=== PATIENT | female | born 1945 | race Caucasian/White ===

== ENCOUNTER 2020-06-06 00:16 | Outpatient (CLI) | payer MEDICARE, SELFPAY ==
[2020-06-06 19:58] LABS: SARS-CoV-2 RNA PCR Negative
== END 2020-06-06 00:17 | disposition home or self-care (01) ==
LOC: ANHCOVIDDT 00:16
PROVIDERS: PCP Family Medicine; Visit Provider Internal Medicine Gastroenterology
DX: Z01.812 Encounter for preprocedural laboratory examination (principal); Z20.828 Contact with and (suspected) exposure to other viral communicable diseases
CPT/HCPCS: 87635; C9803; U0003

== ENCOUNTER 2020-06-08 03:19 | Day surgery (SDC) | payer MEDICARE, SELFPAY ==
[2020-06-01 13:09] VITALS: BMI 22.2
[2020-06-08 06:56] VITALS: BP 148/72; PULSE 91; RESP 18; TEMP 36.4; O2SAT 100; BMI 21.9
[2020-06-08] MEDS: LACTATED RINGERS 1,000 ML 150 ML IV CONT (07:14)
--- NOTE | 2020-06-08 07:22 | WPDANESEPPF ---
Anes - Initial Pre Proc Eval Procedure: Operation Date: 06/08/20 08:00 Proposed Procedures p Colonoscopy - Daniel Stewart MD Date/Time: 06/08/20 07:22 Surgeon: Daniel Stewart MD Pre Op Diagnosis: Pos Cologuard Patient Data Age: 74 Gender: F Height: 5 ft 3 in Weight: 56.1 kg Last Vital Signs Temp 36.4 C 06/08/20 06:56 Pulse 91 06/08/20 06:56 Resp 18 06/08/20 06:56 BP 148/72 H 06/08/20 06:56 Pulse Ox 100 06/08/20 06:56 Allergies Allergy/AdvReac Type Severity Reaction Status Date / Time amoxicillin Allergy Mild hives Verified 06/08/20 06:54 Sulfa (Sulfonamide Allergy Mild SOB Verified 06/08/20 06:54 Antibiotics) tetracycline AdvReac Nausea and Verified 06/08/20 06:54 Vomiting Home Medications Medication Instructions Recorded Confirmed Type multivitamin 1 tablet PO DAILY 08/07/19 06/08/20 History rosuvastatin 5 mg tablet 5 mg PO DAILY #90 tablet 04/18/20 06/08/20 Rx amlodipine [Norvasc] 2.5 mg PO BID 06/01/20 06/08/20 History Patient hx anesthesia problems: other (aspiration x2) Family hx anesthesia problems: none PMFSH Past Medical History Medical History BP (high blood pressure) Mixed hyperlipidemia Osteopenia after menopause Surgical History Surgical History Hx of hysterectomy Family History Family History Father Hypertension Cerebrovascular accident Family history of arthritis Patient's father is Mother Asthma Family history of arthritis Family history of pancreatic cancer Patient's mother is Sibling Family history of alcoholism Family history of lung cancer Patient's sister is Social History Social History Social History: Smoking status: Never smoker Second hand tobacco smoke exposure: No Alcohol intake: current Drinks per week: 21 Substance use: never Substance use type: does not use Living arrangements: alone Gender identity (if verbalized by the patient): Female Spiritual care concerns: No Anes - Eval Final PreProcedure Day of Procedure 06/08/20 07:22 Patient weight: normal Heart: regular rate and rhythm Lungs: clear to auscultation Airway: Mallampati scale class II Neurological: alert and oriented Last oral intake: >/= 8 hours ASA classification: II Emergent: no Anesthetic plan: proceed Anesthesia type and monitoring: general GIVS and standard monitoring Informed Consent: The patient's anesthetic plan and its attendant risks and benefits were discussed with the patient/family/POA. Questions were solicited and answers provided to the satisfaction of the patient/family/POA.
--- NOTE | 2020-06-08 08:09 | WPDGICN ---
Assessment and Plan Assessment and plan (1) Positive colorectal cancer screening using Cologuard test: Code(s): R19.5 - Other fecal abnormalities Status: Acute Assessment and Plan: Patient presents for screening colonoscopy. She recently had a positive coloGuard test. Family history is noncontributory however her had colon cancer. GI Consult Note Consult date/time: 06/08/20 08:09 HPI: Aziza Law is a 74 year old female Seen in evaluation at the request of Dr. Quan. Patient has a history of positive: Guard test. She states her current weight appetite bowel movements are normal. She denies abdominal pain. She has had no bleeding. Family history is noncontributory. Her did have colon cancer however. Review of Systems Review of Systems: All systems reviewed & are unremarkable except as noted in HPI and below PMFSH Past Medical History Medical History (Updated 06/08/20 @ 08:10 by Daniel Stewart MD) BP (high blood pressure) Mixed hyperlipidemia Osteopenia after menopause Surgical History Surgical History Hx of hysterectomy Family History Family History Father Hypertension Cerebrovascular accident Family history of arthritis Patient's father is Mother Asthma Family history of arthritis Family history of pancreatic cancer Patient's mother is Sibling Family history of alcoholism Family history of lung cancer Patient's sister is Social History Social History Social History: Smoking status: Never smoker Second hand tobacco smoke exposure: No Alcohol intake: current Drinks per week: 21 Substance use: never Substance use type: does not use Living arrangements: alone Gender identity (if verbalized by the patient): Female Spiritual care concerns: No Meds Home Medications and Allergies Home Medications Medication Instructions Recorded Confirmed Type multivitamin 1 tablet PO DAILY 08/07/19 06/08/20 History rosuvastatin 5 mg tablet 5 mg PO DAILY #90 tablet 04/18/20 06/08/20 Rx amlodipine [Norvasc] 2.5 mg PO BID 06/01/20 06/08/20 History Allergies Allergy/AdvReac Type Severity Reaction Status Date / Time amoxicillin Allergy Mild hives Verified 06/08/20 06:54 Sulfa (Sulfonamide Allergy Mild SOB Verified 06/08/20 06:54 Antibiotics) tetracycline AdvReac Nausea and Verified 06/08/20 06:54 Vomiting Vital Signs Vital Signs - 24 hr 06/08/20 06:56 Temperature 97.6 F Pulse Rate 91 Respiratory Rate 18 Blood Pressure 148/72 H Pulse Oximetry 100 Exam Narrative: Exam Narrative: Physical exam reveals patient to be alert. Vital signs stable. HEENT exam unremarkable. Lungs are clear to auscultation and percussion. Heart is without murmur or extra sounds. Abdominal exam bowel sounds present soft nontender with no organomegaly. Digital external rectal exam normal.
[2020-06-08 08:44] VITALS: BP 102/54; PULSE 67; RESP 17; O2SAT 100
[2020-06-08 08:54] VITALS: BP 114/59; PULSE 66; RESP 15; O2SAT 100
[2020-06-08 09:04] VITALS: BP 112/59; PULSE 69; RESP 21; O2SAT 100
== END 2020-06-08 09:13 | disposition home or self-care (01) ==
PROVIDERS: PCP Family Medicine; Visit Provider Internal Medicine Gastroenterology
PROC: 0DJD8ZZ Inspection of Lower Intestinal Tract, Via Natural or Artificial Opening Endoscopic (ICD-10-PCS; CPT 45378; principal; 2020-06-08 08:00)
DX: Z12.11 Encounter for screening for malignant neoplasm of colon (principal); K62.1 Rectal polyp; K64.8 Other hemorrhoids; K57.30 Diverticulosis of large intestine without perforation or abscess without bleeding; R19.5 Other fecal abnormalities; E78.2 Mixed hyperlipidemia; I10 Essential (primary) hypertension; M81.0 Age-related osteoporosis without current pathological fracture
CPT/HCPCS: 45385; 88305; J2704; J7120

== ENCOUNTER 2020-10-05 17:18 | Outpatient (CLI) | payer MEDICARE, SELFPAY | END 2020-10-05 17:19 | disposition home or self-care (01) | LOC: ANHCOVIDVC 17:18 | PROVIDERS: PCP Family Medicine | DX: Z23 Encounter for immunization (principal) | CPT/HCPCS: 0001A; 91300 ==

== ENCOUNTER → 2020-10-17 12:27 | Outpatient (CLI) | payer MEDICARE, SELFPAY ==
--- NOTE | ~2020-10-17 | MM_ITS ---
EXAMINATION: MM screening [facility] BI w ricky HISTORY: Screening TECHNIQUE: Craniocaudal and mediolateral oblique 3-D tomosynthesis images were obtained and synthetic 2-D images were generated. CAD analysis was submitted and interpreted. COMPARISON: Comparison to multiple prior studies sequentially, with oldest reviewed study dated 04/02. BREAST PARENCHYMAL COMPOSITION: There are scattered areas of fibroglandular density. FINDINGS: There is no evidence of suspicious mass, calcification, or architectural distortion to sugg est malignancy in either breast. There has been no suspicious interval change. IMPRESSION: 1. No mammographic evidence of malignancy. 2. Recommend routine screening mammography in one year. BI-RADS Category 1: Negative Reviewed, dictated and finalized at location A.
== END ==
PROVIDERS: Visit Provider Family Medicine
DX: Z12.31 Encounter for screening mammogram for malignant neoplasm of breast (principal)
CPT/HCPCS: 77063; 77067

== ENCOUNTER 2020-10-26 16:58 | Outpatient (CLI) | payer MEDICARE, SELFPAY | END 2020-10-26 16:59 | disposition home or self-care (01) | LOC: ANHCOVIDVC 16:58 | DX: Z23 Encounter for immunization (principal) | CPT/HCPCS: 0002A; 91300 ==

== ENCOUNTER → 2021-11-03 10:14 | Outpatient (CLI) | payer MEDICARE, SELFPAY ==
--- NOTE | ~2021-11-03 | DEXA_ITS ---
Bone Density Report Name: MARGI MIMS Age: 75 Sex: Female Ethnicity: White Date of : 1945 Indication: osteopenia; height loss; hysterectomy; postmenopausal Referring Provider: NIMISHA, BO Cuadra Study: Bone densitometry was performed. Exam Date: November 03, 2021 Accession number: [id number] Bone Density: Region BMD T-score Z-score Classification AP Spine (L1-L4) 0.953 -0.9 1.5 Normal Femoral Neck (Left) 0.623 -2.0 0.0 Osteopenia Total Hip (Left) 0.683 -2.1 -0.3 Osteopenia Femoral Neck (Right) 0.607 -2.2 -0.1 Osteopenia Total Hip (Right) 0.800 -1.2 0.6 Osteopenia Total Hip Mean 0.742 -1.7 0.2 Osteopenia World Health Organization criteria for BMD impression classify patients as: Normal (T-score at or above -1.0), Osteopenia (T-score between -1.0 and -2.5), or Osteoporosis (T-score at or below -2.5). 10-year Fracture Risk(1): Major Osteoporotic Fracture 16% Hip Fracture 5.4% Reported Risk Factors: [place] (), Neck BMD=0.607, BMI=21.9, alcohol use (1) FRAX(R) Version 3.08. Fracture probability calculated for an untreated patient. Fracture probability may be lower if the patient has received treatment. Previous Exams: Region Exam Age BMD T-score BMD Change BMD Change Date g/cm2 vs Baseline vs Previous AP Spine(L1-L4) 11/03/2021 75 0.953 -0.9 -0.037* -0.045* 05/22/2018 72 0.997 -0.5 0.007 0.007 03/18/2015 69 0.990 -0.5 Total Hip(Left) 11/03/2021 75 0.683 -2.1 -0.040* -0.003 05/22/2018 72 0.686 -2.1 -0.037* -0.037* 03/18/2015 69 0.723 -1.8 Total Hip(Right) 11/03/2021 75 0.800 -1.2 -0.026 0.004 05/22/2018 72 0.796 -1.2 -0.030* -0.030* 03/18/2015 69 0.826 -0.9 *Denotes significance at 95% confidence level, LSC for AP Spine = 0.022 g/cm2, LSC for Total Hip = 0.027 g/cm2 Clinical Information Provided by Patient: Has 3 or more alcoholic drinks per day Has used the following medications: Vitamin D, Calcium, MULTI VITAMIN Has the following medical conditions: Hysterectomy Patient maximum height was 64.75 Menopause Age: 31 Drinks caffeinated beverages Onset of menses at age 12 Number of children 0 Impression: The patient has low bone mass, based on the Right Femoral Neck T-score. The patient has an estimated ten-year risk of hip fracture of 5.4% and an estimated ten-year risk of
== END ==
PROVIDERS: PCP Family Medicine; Visit Provider Physician Assistant
DX: Z78.0 Asymptomatic menopausal state (principal); M85.89 Other specified disorders of bone density and structure, multiple sites
CPT/HCPCS: 77080

== ENCOUNTER → 2021-11-27 12:32 | Outpatient (CLI) | payer MEDICARE, SELFPAY ==
--- NOTE | ~2021-11-27 | MM_ITS ---
EXAMINATION: MM screening [facility] BI w ricky HISTORY: Screening TECHNIQUE: Craniocaudal and mediolateral oblique 3-D tomosynthesis images were obtained and synthetic 2-D images were generated. CAD analysis was submitted and interpreted. COMPARISON: Comparison to multiple prior studies sequentially, with oldest reviewed study dated 04/02. BREAST PARENCHYMAL COMPOSITION: Breast composed of scattered areas of fibroglandular density FINDINGS: There is no evidence of suspicious mass, calcification, or architectural distortion to sugg est malignancy in either breast. There has been no suspicious interval change. IMPRESSION: 1. No mammographic evidence of malignancy. 2. Recommend routine screening mammography in one year. BI-RADS Category 1: Negative Reviewed, dictated and finalized at location A.
== END ==
PROVIDERS: PCP Family Medicine; Visit Provider Family Medicine
DX: Z12.31 Encounter for screening mammogram for malignant neoplasm of breast (principal)
CPT/HCPCS: 77063; 77067

== ENCOUNTER → 2023-09-14 11:17 | Outpatient (CLI) | payer MEDICARE, SELFPAY ==
--- NOTE | ~2023-09-14 | MM_ITS ---
EXAMINATION: MM screening [facility] BI w ricky HISTORY: Screening mammogram TECHNIQUE: Craniocaudal and mediolateral oblique 3-D tomosynthesis images were obtained and synthetic 2-D images were generated. CAD analysis was submitted and interpreted. COMPARISON: 11/27/2021, 10/17/2020, 07/06/2019 BREAST PARENCHYMAL COMPOSITION:Not Dense. There are scattered areas of fibroglandular density. FINDINGS: Stable benign mass at the inner left breast. No suspicious mass, calcification, or architec tural distortion are identified in either breast to suggest malignancy. There has been no suspicious interval change. IMPRESSION: No mammographic evidence of malignancy. Recommend routine screening mammography in one year. BI-RADS Category 2: Benign finding(s). Reviewed, dictated and finalized at [facility]. [employer] CORRESPONDENT
== END ==
PROVIDERS: PCP Family Medicine; Visit Provider Family Medicine
DX: Z12.31 Encounter for screening mammogram for malignant neoplasm of breast (principal)
CPT/HCPCS: 77063; 77067

== ENCOUNTER 2024-04-03 11:43 | Outpatient (CLI) | payer MEDICARE, SELFPAY ==
--- NOTE | ~2024-04-03 | DEXA_ITS ---
Bone Density Report Name: MARGI MIMS Age: 78 Sex: Female Ethnicity: White Date of : 1945 Indication: postmenopausal; screening for osteoporosis; prior fracture; hysterectomy; Referring Provider: KAUSHIK, HONORIO Aguilar Study: Bone densitometry was performed. Exam Date: April 03, 2024 Accession number: [id number] Bone Density: Region BMD T-score Z-score Classification AP Spine(L1-L4) 1.006 -0.4 2.2 Normal Femoral Neck (Left) 0.572 -2.5 -0.3 Osteoporosis Total Hip (Left) 0.717 -1.8 0.1 Osteopenia Femoral Neck (Right) 0.620 -2.1 0.1 Osteopenia Total Hip (Right) 0.768 -1.4 0.5 Osteopenia Femoral Neck Mean 0.596 -2.3 -0.1 Osteopenia Total Hip Mean 0.742 -1.6 0.3 Osteopenia World Health Organization criteria for BMD impression classify patients as: Normal (T-score at or above -1.0), Osteopenia (T-score between -1.0 and -2.5), or Osteoporosis (T-score at or below -2.5). 10-year Fracture Risk: FRAX not reported because: Some T-score for Spine Total or Hip Total or Femoral Neck at or below -2.5 Clinical Information Provided by Patient: Has had a low trauma fracture Has used the following medications: Calcium Has the following medical conditions: Hysterectomy Patient maximum height was 64 Menopause Age: 51 Onset of menses at age 12 Number of children 0 Impression: The patient has established osteoporosis, based on the Left Femoral Neck T-score and the existence of a prior fracture. The patient has risk factors, including: previous fracture. Discussion: HIGH RISK OF FRACTURE. BONE DENSITY IS UNDESIRABLY LOW AT ONE OR MORE SKELETAL SITES, CONSISTENT WITH POSTMENOPAUSAL OSTEOPOROSIS. This patient's lowest T-score, in a patient who has previously fractured, meets the World Health Organization's (WHO) criteria for severe osteoporosis. In untreated patients, the risk of osteoporotic fracture increases approximately two-fold for each 1.0 SD decrease in T-score. Low bone density is not the only risk factor for fracture; also consider factors such as patient's age, frailty or poor health, risk of falling, risk of injury, previous osteoporotic fracture, family history of osteoporosis, cigarette smoking, low body weight, etc. Not everyone with low bone mineral density has osteoporosis; osteomalacia and other metabolic bone disorders should also be considered. Patients who have osteoporosis should be evaluated for specific diseases and conditions (secondary causes) that may cause or contribute to bone loss. The [place] [employer] (AACE) and National Osteoporosis Foundation (NOF) recommend pharmacologic intervention for all postmenopausal women whose T-score is in this range. The patient should follow a healthful lifestyle (good nutrition with adequate calci
== END 2024-04-03 11:44 | disposition home or self-care (01) ==
LOC: CHSIMG 11:45
PROVIDERS: PCP Family Medicine; Visit Provider Family Medicine
DX: Z78.0 Asymptomatic menopausal state (principal); M85.89 Other specified disorders of bone density and structure, multiple sites; M81.0 Age-related osteoporosis without current pathological fracture
CPT/HCPCS: 77080

== ENCOUNTER 2024-11-27 12:28 | Outpatient (CLI) | payer MEDICARE, SELFPAY ==
--- NOTE | ~2024-11-27 | MM_ITS ---
EXAMINATION: MM screening [facility] BI w ricky HISTORY: Screening TECHNIQUE: Craniocaudal and mediolateral oblique 3-D tomosynthesis images were obtained and synthetic 2-D images were generated. CAD analysis was submitted and interpreted. COMPARISON: Comparison to multiple prior studies sequentially, with oldest reviewed study dated 04/23. BREAST PARENCHYMAL COMPOSITION: Not dense: There are scattered areas of fibroglandular density. FINDINGS: There is no evidence of suspicious mass, calcification, or architectural distortion to sugg est malignancy in either breast. There has been no suspicious interval change. IMPRESSION: 1. No mammographic evidence of malignancy. 2. Recommend routine screening mammography in one year. BI-RADS Category 1: Negative Reviewed, dictated and finalized at location A.
== END 2024-11-27 12:29 | disposition home or self-care (01) ==
LOC: MICIMG 12:29
PROVIDERS: PCP Family Medicine; Visit Provider Family Medicine
DX: Z12.31 Encounter for screening mammogram for malignant neoplasm of breast (principal)
CPT/HCPCS: 77063; 77067